=== PATIENT | female | born 1955 | race Caucasian/White ===

== ENCOUNTER 2023-02-01 10:42 | Emergency (ER) | payer MEDICARE, BC ==
[2023-02-01] MEDS: HYDROmorphone 0.5 MG/0.5 ML Syringe SUBCUT PRN (11:39)
[2023-02-01] MEDS: Ondansetron 4 MG Tab.DIS PO PRN (12:24)
== END 2023-02-01 13:34 | disposition home or self-care (01) ==
LOC: CC.ED 10:42
DX: S82.51XA Displaced fracture of medial malleolus of right tibia, initial encounter for closed fracture (principal); S82.431A Displaced oblique fracture of shaft of right fibula, initial encounter for closed fracture; Z88.1 Allergy status to other antibiotic agents; W00.0XXA Fall on same level due to ice and snow, initial encounter
CPT/HCPCS: 29515; 73610-RT; 96372; 99283; 99283-25; A9270-GY; J1170